=== PATIENT | male | born 1975 | race Two or more races ===

== ENCOUNTER → 2019-04-25 | Day surgery (SDC) | payer OTHER ==
[~2019-04-25] MED LIST: IV RINGERS,LACTATED 1000ML 1,000 ML IV ONE; LIDOCAINE 2% PF 5 ML VIAL. ONE; OMEP20TA8 PO; PROPOFOL 20 ML IV ONE
[2019-04-25 08:46] VITALS: BP 120/83
== END ==
LOC: SURG 07:06
PROVIDERS: ATTEND Internal Medicine Gastroenterology
DX: K29.50 Unspecified chronic gastritis without bleeding (principal); K21.9 Gastro-esophageal reflux disease without esophagitis; F41.9 Anxiety disorder, unspecified; F32.9 Major depressive disorder, single episode, unspecified; Z87.891 Personal history of nicotine dependence
CPT/HCPCS: 43235; J2001; J2704

== ENCOUNTER → 2019-05-10 | Outpatient (CLI) | payer OTHER ==
[~2019-05-10] VITALS: Ht 185.4 cm; Wt 111.1 kg
[~2019-05-10] MED LIST changes: -IV RINGERS,LACTATED 1000ML 1,000 ML IV ONE; -LIDOCAINE 2% PF 5 ML VIAL. ONE; +NORMAL SALINE IV ONE; -PROPOFOL 20 ML IV ONE; +SINCALIDE IV ONE
--- NOTE | 2019-05-17 15:54 | RAD ---
HEPATOBILIARY SCAN WITH EJECTION FRACTION Indication: Abdominal pain and bloating Comparison: None Procedure: Serial static images are obtained of the liver and biliary system following IV administration of mebrofenin. After filling the gallbladder 2.2 mcg of CCK was administered intravenously over 30 minutes in 30 cc of normal saline and the gallbladder ejection fraction was measured. Delayed images were obtained over the area of the biliary system to evaluate emptying into the small bowel. Findings: There is homogeneous distribution throughout the liver. Biliary system is visualized on the 10 minute image. There is normal filling of the gallbladder and normal emptying into the biliary system and small bowel. The gallbladder ejection fraction measures 65% (normal gallbladder EF is 45% or greater). Impression: Normal hepatobiliary scan and ejection fraction. Electronically signed by: Rakesh Barraza MD (05/17/2019 3:51 PM) [facility]
== END | disposition home or self-care (01) ==
LOC: MERGE 08:11 → NM 08:11
PROVIDERS: ATTEND Internal Medicine Gastroenterology
DX: R10.13 Epigastric pain (principal)
CPT/HCPCS: 78227; A9537; J2805